=== PATIENT | male | born 1930 | race Caucasian/White ===

== ENCOUNTER 2019-07-10 00:40 | Emergency (ER) | payer MEDICARE, OTHER ==
[2019-07-10] MEDS ORDERED: GI Cocktail Oral Solution 30 ML PO ONE (00:57)
[2019-07-10 01:55] LABS: ANION GAP 14.3 mmol/L (10-20); CHLORIDE,CL 106 mmol/L (98-107); SODIUM,NA 142 mmol/L (136-145)
--- NOTE | 2019-07-10 03:32 | EDM.PDOC ---
ED HPI GENERAL MEDICAL PROBLEM - General Chief Complaint: Chest Pain Stated Complaint: Epigastric Pain Time Seen by Provider: 07/10/19 00:50 Source of Information: Reports: Patient History Limitations: Reports: No Limitations - History of Present Illness INITIAL COMMENTS - FREE TEXT/NARRATIVE: Pt. presents to ER with complaints of reproducible abdominal discomfort. 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 He states that he started having the discomfort at around 4 this afternoon. He states that he took an antacid earlier in the evening and states that the discomfort has improved significantly. Denies any jaw, substernal chest, neck, or back pain. Denies any shortness of breath. Pt. denies any cough. No fever or chills. No nausea, vomiting, or diarrhea. No blood in stools. Onset Date: 07/09/19 Location: Reports: Abdomen Quality: Reports: Burning Severity: Moderate - Related Data Allergies Allergy/AdvReac Type Severity Reaction Status Date / Time morphine AdvReac Intermediate Nausea and Verified 07/10/19 00:55 Vomiting Home Meds: Home Meds Aspirin [Mihaela Chewable] 81 mg PO DAILY 12/30/14 [History] Cholecalciferol (Vitamin D3) [Vitamin D3] 1 tab PO DAILY 12/30/14 [History] Enalapril [Vasotec] 10 mg PO BID 12/30/14 [History] Etodolac 400 mg PO BID PRN 12/30/14 [History] Metoprolol Tartrate 25 mg PO BID 12/30/14 [History] Multivitamin [Multiple Vitamins] 1 tab PO DAILY 12/30/14 [History] Nitroglycerin [Nitrostat] 0.4 mg SL ASDIRECTED PRN 12/30/14 [History] Omeprazole Magnesium [Prilosec Otc] 1 tab PO DAILY 12/30/14 [History] Simvastatin [Zocor] 40 mg PO BEDTIME 12/30/14 [History] amLODIPine [Norvasc] 5 mg PO DAILY 12/30/14 [History] tiZANidine HCl [Zanaflex] 2 mg PO BID PRN 12/30/14 [History] Past Medical History Other Cardiovascular History: Bilateral carotid artery disease Other Gastrointestinal History: Anal and rectal polyps. Emelina-reyes syndrome. diverticulosis Other Genitourinary History: Elevated PSA Other Musculoskeletal History: Lumbar disc with radiculopathy. Acute left hip pain Other Endocrine/Metabolic History: Hyperglycemia Other Dermatologic History: skin cancer to nose and left shoulder ED ROS GENERAL - Review of Systems Review Of Systems: See Below Constitutional: Reports: No Symptoms HEENT: Reports: No Symptoms Respiratory: Reports: No Symptoms Cardiovascular: Reports: No Symptoms Endocrine: Reports: No Symptoms GI/Abdominal: Reports: Abdominal Pain : Reports: No Symptoms Musculoskeletal: Reports: No Symptoms Skin: Reports: No Symptoms Neurological: Reports: No Symptoms Psychiatric: Reports: No Symptoms Hematologic/Lymphatic: Reports: No Symptoms Immunologic: Reports: No Symptoms ED EXAM, GENERAL - Physical Exam Exam: See Below Exam Limited By: No Limitations General Appearance: Alert, WD/WN, No Apparent Distress Nose: Normal Inspection, Normal Mucosa, No Blood Throat/Mouth: Normal Inspection, Normal Lips, Normal Teeth, Normal Gums, Normal Oropharynx, Normal Voice, No Airway Compromise Head: Atraumatic, Normocephalic Neck: Normal Inspection, Supple, Non-Tender, Full Range of Motion Respiratory/Chest: No Respiratory Distress, Lungs Clear, Normal Breath Sounds, No Accessory Muscle Use, Chest Non-Tender Cardiovascular: Normal Peripheral Pulses, Regular Rate, Rhythm, No Edema, No Gallop, No JVD, No Murmur, No Rub Peripheral Pulses: 4+: Radial (L) GI/Abdominal: Normal Bowel Sounds, Soft, No Organomegaly, No Distention, Tender (Male) Exam: Deferred Rectal (Males) Exam: Deferred Back Exam: Normal Inspection, Full Range of Motion Extremities: Normal Inspection, Normal Range of Motion, Non-Tender, No Pedal Edema, Normal Capillary Refill Neurological: Alert, Oriented, CN II-XII Intact, Normal Cognition, Normal Gait, Normal Reflexes, No Motor/Sensory Deficits Psychiatric: Normal Affect, Normal Mood Skin Exam: Warm, Dry, Intact, Normal Color, No Rash Lymphatic: No Adenopathy EKG INTERPRETATION Rhythm: NSR [place]: Normal P-Wave: Present QRS: RBBB ST-T: Normal QT: Normal Comparison: No Change Course - Orders/Labs/Meds Orders: Active Orders 24 hr Category Date Time Status EKG Documentation Completion [RC] STAT Care 07/10/19 00:57 Active Labs: Laboratory Tests 07/10/19 07/10/19 07/10/19 Range/Units 01:27 01:27 01:27 WBC 8.3 (4.0-10.0) x10^3/uL RBC 4.79 (4.5-6.0) x10^6/uL Hgb 14.5 (14.0-18.0) g/dL Hct 42.9 (40.0-52.0) % MCV 89.6 (78.0-93.0) fL MCH 30.3 (26.0-32.0) pg MCHC 33.8 (32.0-36.0) g/dL RDW Coeff of Surendra 13.4 (10.0-15.0) % Plt Count 184 (130-400) x10^3/uL Neut % (Auto) 91.6 H (50.0-80.0) % Lymph % (Auto) 3.9 L (25.0-50.0) % Starr % (Auto) 4.4 (2.0-11.0) % Eos % (Auto) 0.0 (0.0-4.0) % Baso % (Auto) 0.1 L (0.2-1.2) % PT 10.4 (10.0-12.8) SEC INR 0.9 L (2.0-3.5) Sodium 142 (136-145) mmol/L Potassium 4.3 (3.5-5.1) mmol/L Chloride 106 (98-107) mmol/L Carbon Dioxide 26 (21-32) mmol/L Anion Gap 14.3 (10-20) mmol/L BUN 33 H (7-18) mg/dL Creatinine 1.3 (0.70-1.30) mg/dL Est Cr Clr Drug Dosing 40.56 mL/min Estimated GFR (MDRD) 52 Glucose 143 H (74-106) mg/dL Calcium 8.6 (8.5-10.1) mg/dL Corrected Calcium 9.08 (8.5-10.1) mg/dL Total Bilirubin 0.5 (0.2-1.0) mg/dL AST 21 (15-37) U/L ALT 20 (16-63) U/L Alkaline Phosphatase 69 (46-116) U/L Troponin I < 0.017 (<=0.056) ng/mL Total Protein 7.0 (6.4-8.2) g/dL Albumin 3.4 (3.4-5.0) g/dL Globulin 3.6 Albumin/Globulin Ratio 0.94 Meds: Medications Discontinued Medications Generic Name Dose Route Start Last Admin Trade Name Sean PRN Reason Stop Dose Admin Al Hydroxide/Mg Hydroxide 30 ml 07/10/19 00:57 07/10/19 01:08 Gi Cocktail PO 07/10/19 00:58 30 ml ONETIME ONE Administration Departure - Departure Time of Disposition: 02:05 Disposition: Home, Self-Care 01 Clinical Impression: Gastroesophageal reflux disease - Discharge Information Instructions: Heartburn, [id number] Referrals: Bharti Mcnamara MD [Primary Care Provider] - Forms: ED Department Discharge Additional Instructions: Return to ER if you have worsening discomfort, pain in your chest, or shortness of breath. Recheck in clinic in 7-10 days, sooner if not improving. - My Orders Last 24 Hours: My Active Orders 07/10/19 00:57 EKG Documentation Completion [RC] STAT - Assessment/Plan Last 24 Hours: My Active Orders 07/10/19 00:57 EKG Documentation Completion [RC] STAT Plan: Pt. was given a GI cocktail with complete resolution of his symptoms. He wished to be discharged. He was advised to return to ER if the discomfort worsens or returns, or if his has palpitations, shortness of breath, or other worrisome signs/symptoms. Recheck in clinic in 7-10 days.
[2019-07-10 05:34] VITALS: BP 152/76; PULSE 92
== END 2019-07-10 02:05 | disposition home or self-care (01) ==
LOC: VM.ED 00:40
DX: K21.9 Gastro-esophageal reflux disease without esophagitis (principal); Z88.5 Allergy status to narcotic agent; Z79.82 Long term (current) use of aspirin; Z79.899 Other long term (current) drug therapy
CPT/HCPCS: 36415; 80053; 84484; 85025; 85610; 93005; 93010; 99284; A9270